=== PATIENT | male | born 1930 | race Caucasian/White ===

== ENCOUNTER 2017-02-22 08:08 | Emergency (ER) | payer SELFPAY ==
[~2017-02-22] VITALS: Wt 55.0 kg
[2017-02-22 10:33] LABS: ADD SCAN DIFF NO
[2017-02-22 10:35] LABS: BASOPHILS % 0.3 % (0.0-2.0); EOSINOPHILS % 0.1 % (0.0-7.0); HEMATOCRIT 34.5 % (42.0-52.0); HEMOGLOBIN 11.5 g/dl (14.0-18.0); LYMPHOCYTES # 0.9 10^3/ul (0.8-2.9); LYMPHOCYTES % 7.9 % (15.0-51.0); MEAN CORPUSCULAR HEMOGLOBIN 32.1 pg (29.0-33.0); MEAN CORPUSCULAR HGB CONC 33.3 g/dl (32.0-37.0); MEAN CORPUSCULAR VOLUME 96.4 fl (82.0-101.0); MEAN PLATELET VOLUME 8.4 fl (7.4-10.4); MONOCYTE # 0.5 10^3/ul (0.3-0.9); MONOCYTES % 4.2 % (0.0-11.0); NEUTROPHIL # 9.8 10^3/ul (1.6-7.5); NEUTROPHILS % 87.1 % (39.0-77.0); PLATELET COUNT 260 10^3/UL (140-415); RED BLOOD COUNT 3.58 10^6/ul (4.70-6.10); RED CELL DISTRIBUTION WIDTH 13.1 % (11.5-14.5); WHITE BLOOD COUNT 11.2 10^3/ul (4.8-10.8)
[2017-02-22 10:58] LABS: ALBUMIN 4.3 g/dl (3.3-4.9); ALBUMIN/GLOBULIN RATIO 4.3; BILIRUBIN,INDIRECT 0.1 mg/dl (0-1.1); BILIRUBIN,TOTAL 0.1 mg/dl (0.2-1.3); CALCIUM 9.4 mg/dl (8.4-10.2); CREATININE 0.88 mg/dl (0.61-1.24); POTASSIUM 4.5 mmol/L (3.5-5.1); TOTAL PROTEIN 5.3 g/dl (6.1-8.1)
[2017-02-22 11:42] LABS: ADD UMIC YES; UR BILIRUBIN (Dip) NEGATIVE (NEGATIVE); UR BLOOD (Dip) 1+ (NEGATIVE); UR CLARITY CLEAR (CLEAR); UR COLOR LT. YELLOW (YELLOW); UR GLUCOSE (Dip) NEGATIVE (NEGATIVE); UR KETONES (Dip) NEGATIVE (NEGATIVE); UR LEUKOCYTE ESTERASE (Dip) 3+ (NEGATIVE); UR NITRITE (Dip) POSITIVE (NEGATIVE); UR TOTAL PROTEIN (Dip) TRACE (NEGATIVE); UR UROBILINOGEN (Dip) 0.2 E.U./dL (0.1-1.0)
[2017-02-22 11:58] LABS: BACTERIA,URINE MODERATE
[2017-02-22] MEDS ORDERED: CIPROFLOXACIN 500 MG TAB PO ONE (12:00)
[2017-02-22] MEDS ORDERED: CEFTRIAXONE 1 GM/50 ML (PMX) 50 ML IVPB ONE (12:00)
[2017-02-22] MEDS ORDERED: CIPR500T4 PO (12:01)
--- NOTE | 2017-02-22 12:06 | ERD ---
ER Documentation Chief Complaint Date/Time DATE: 02/22/17 TIME: 08 Chief Complaint urinary retention for the past few hours. mild abd pain cath in place HPI 86-year-old male presents the emergency department from his care facility for evaluation of urinary retention. Patient has required a Hennessy catheter in the past. He states over the last 24 hours, he has had difficulty passing urine. He reports no fevers, chills, vomiting. Patient reports no hematuria or trauma. ROS All systems reviewed and are negative except as per history of present illness. Medications Home Meds Active Scripts Ciprofloxacin Hcl* (Ciprofloxacin Hcl*) 500 Mg Tablet, 500 MG PO BID for 7 Days , TAB Prov:DEZ DUVALL 02/22/17 Allergies Allergies: Coded Allergies: Unknown: Unable to obtain (Unverified , 02/22/17) FmHx Noncontributory for chief complaint Physical Exam Vitals Vital Signs Date Time Temp Pulse Resp B/P Pulse Ox O2 Delivery O2 Flow Rate FiO2 02/22/17 08:17 98.2 81 21 135/77 97 Physical Exam GENERAL: Patient is a frail elderly male in no acute distress other than his suprapubic discomfort HEENT: Pupils equal, round, and reactive to light. EOMI. There is no scleral icterus. Patient has evidence of squamous cell carcinoma NECK: C-spine is soft and supple, there is no meningismus. There is no cervical lymphadenopathy. LUNGS: Clear to auscultation bilaterally. There are no rales, wheezes or rhonchi. HEART: Regular rate and rhythm, no murmurs, clicks, rubs or gallops. ABDOMEN: Soft, non-tender, non-distended. There are bowel sounds in all four quadrants. No rebound or guarding. Patient has suprapubic distention EXTREMITIES: There is no peripheral cyanosis or edema. No focal swelling or erythema. NEURO: The patient moves all four extremities with 5/5 strength. Cranial nerves II - XII are intact. Normal gait. Alert and oriented SKIN: There is no apparent rash or petechiae. HEME/LYMPHATIC: There is no evidence of excessive bruising or lymphedema. PSYCHIATRIC: The patient does not appear anxious or depressed. Result Diagram: 02/22/17 1020 02/22/17 1020 Results 24 hrs Laboratory Tests Test 02/22/17 10:20 02/22/17 11:30 White Blood Count 11.210^3/ul Red Blood Count 3.5810^6/ul Hemoglobin 11.5g/dl Hematocrit 34.5% Mean Corpuscular Volume 96.4fl Mean Corpuscular Hemoglobin 32.1pg Mean Corpuscular Hemoglobin Concent 33.3g/dl Red Cell Distribution Width 13.1% Platelet Count 27606^3/UL Mean Platelet Volume 8.4fl Neutrophils % 87.1% Lymphocytes % 7.9% Monocytes % 4.2% Eosinophils % 0.1% Basophils % 0.3% Nucleated Red Blood Cells % 0.0/100WBC Neutrophils # 9.810^3/ul Lymphocytes # 0.910^3/ul Monocytes # 0.510^3/ul Eosinophils # 0.010^3/ul Basophils # 0.010^3/ul Nucleated Red Blood Cells # 0.010^3/ul Sodium Level 142mmol/L Potassium Level 4.5mmol/L Chloride Level 106mmol/L Carbon Dioxide Level 29mmol/L Anion Gap 12 Blood Urea Nitrogen 25mg/dl Creatinine 0.88mg/dl Glucose Level 94mg/dl Calcium Level 9.4mg/dl Total Bilirubin 0.1mg/dl Direct Bilirubin 0.00mg/dl Indirect Bilirubin 0.1mg/dl Aspartate Amino Transf (AST/SGOT) 21IU/L Alanine Aminotransferase (ALT/SGPT) 35IU/L Alkaline Phosphatase 88IU/L Total Protein 5.3g/dl Albumin 4.3g/dl Globulin 1.00g/dl Albumin/Globulin Ratio 4.30 Lipase 31U/L Urine Color LT. YELLOW Urine Clarity CLEAR Urine pH 6.5 Urine Specific [place] 1.015 Urine Ketones NEGATIVE Urine Nitrite POSITIVE Urine Bilirubin NEGATIVE Urine Urobilinogen 0.2 E.U./dL Urine Leukocyte Esterase 3+ Urine Microscopic RBC 2-5/HPF Urine Microscopic WBC >200/HPF Urine Bacteria MODERATE Urine Hemoglobin 1+ Urine Glucose NEGATIVE% Urine Total Protein TRACE Current Medications Medications (Trade) Dose Ordered Sig/Fay Route PRN Reason Start Time Stop Time Status Last Admin Dose Admin Ceftriaxone Sodium (Rocephin) 50 ml @ 100 mls/hr ONCE ONCE IVPB 02/22/17 12:00 02/22/17 12:29 Ciprofloxacin (Cipro) 500 mg ONCE ONCE PO 02/22/17 12:00 02/22/17 12:01 Procedures/MDM Patient was taken to a room, seen and evaluated. Comfort measures were initiated. Diagnostic tests were ordered and reviewed. 3 LEAD RHYTHM STRIP: Normal sinus rhythm without ectopy REEVALUATION: After placement of the Hennessy catheter, patient felt much improved. MEDICAL DECISION MAKING: This is an 86-year-old male who presented with urinary retention. Patient does have evidence of urinary tract infection, but does not appear to be septic or toxic. He feels much better after the Hennessy catheter wishes to be discharged home. Departure Diagnosis: Primary Impression: Retention of urine Condition: Stable Patient Instructions: Urinary Retention, Male Additional Instructions: See your doctor for follow-up as discussed. Take a copy of your test results, if appropriate, to this follow-up visit. See your doctor or return here if your symptoms do not improve as expected. At any time, please return to the emergency department for any change or worsening in her symptoms. DEZ DUVALL Feb 22, 2017 12:06
[2017-02-22 13:24] VITALS: BP 129/68; RESP 18
== END 2017-02-22 13:25 | disposition home or self-care (01) ==
LOC: E/R 08:08
DX: R33.9 Retention of urine, unspecified (principal)
CPT/HCPCS: 80053; 81001; 83690; 85025; 87086

== ENCOUNTER 2017-03-19 17:53 | Emergency (ER) | END 2017-03-19 19:00 | disposition home or self-care (01) | DX: T83.098A Other mechanical complication of other urinary catheter, initial encounter (principal); N40.0 Benign prostatic hyperplasia without lower urinary tract symptoms; Y73.2 Prosthetic and other implants, materials and accessory gastroenterology and urology devices associated with adverse incidents ==

== ENCOUNTER 2017-07-05 15:15 | Emergency (ER) | payer OTHER ==
[~2017-07-05] VITALS: Ht 162.6 cm; Wt 55.0 kg
[~2017-07-05 15:15] MED LIST: CIPR500T4 PO
[2017-07-05 15:35] VITALS: Ht 162.6 cm; Wt 55.0 kg
[2017-07-05] MEDS: CEFAZOLIN 1 GM/50 ML (PMX) 50 ML IVPB SCH (16:40)
--- NOTE | 2017-07-05 17:27 | RADRPT ---
PROCEDURE: CT Brain without contrast. CLINICAL INDICATION: Trauma due to a fall. Headache. TECHNIQUE: A CT of the brain without contrast was performed utilizing axial sections from the skul l base through the vertex. The patient was scanned without intravenous contrast enhancement. Sagitta l and coronal reformatted images were obtained using the data from the axial images. Total exam DLP is 720.23 mGy-cm. CTDIvol is 44.33 mGy. One or more of the following dose reduction techniques were used: Automated exposure control, adjustment of the mA and/or kV according to patient size, use of iterative reconstruction technique. COMPARISON: None available. FINDINGS: There is normal roberts-white matter differentiation. There is enlargement of the ventricles and subarachnoid spaces consistent with atrophy. There is decreased attenuation of the periventricular white matter consistent with microangiopathic ischemic change. There is no intracranial hemorrhage or space-occupying lesion. There are vascular calcifications consistent with atherosclerosis. There is no skull fracture or lytic lesion. There is an old superior left frontal craniotomy. IMPRESSION: 1. Atrophy. 2. Microangiopathic ischemic change. 3. Atherosclerosis. 4. No intracranial hemorrhage. 5. Old superior left frontal craniotomy. 6. Otherwise unremarkable noncontrast CT scan of the brain. RPTAT: QQ .Peng Ramirez MD, MD Date Time Electronically viewed and signed by .Peng Ramirez MD, MD on 07/05/2017 17:27 .R/
--- NOTE | 2017-07-05 17:32 | RADRPT ---
PROCEDURE: CT Facial Bones. CLINICAL INDICATION: Trauma due to a fall. Facial pain. TECHNIQUE: Helical axial sections were obtained through the facial bones without intravenous contr ast enhancement. Sagittal and coronal reformatted images were accomplished using the data from the axial images. Total exam DLP is 540.74 mGy-cm. CTDIvol is 29.48 mGy. One or more of the followin g dose reduction techniques were used: Automated exposure control, adjustment of the mA and/or kV ac cording to patient size, use of iterative reconstruction technique. COMPARISON: No prior study is available for comparison. FINDINGS: Paranasal sinuses are normal. There is no fluid, mass, or mucosal thickening. There is no bone abnormality. There is no fracture. There is no lytic or blastic lesion. The orbits are normal. The globes are intact. The extraocular muscles and optic nerves are normal. The nasal septum is midline. The ostiomeatal complexes are normal. The turbinates are unremarkable. The mandible and maxilla are intact. There is asymmetry of the temporal mandibular joints with the r ight temporomandibular joint in the closed position with the mandibular condyle in the articular fos sa and the left temporomandibular joint in the open position with the mandibular condyle translated anterior to the articular fossa. The zygomatic arches and pterygoid plates are normal. There are degenerative changes of the cervical spine. IMPRESSION: 1. No facial bone fracture. 2. Asymmetry of the temporomandibular joints as described above. Clinical correlation advised. 3. Degenerative changes of the cervical spine. 4. Otherwise unremarkable CT scan of the facial bones. RPTAT: QQ .Peng Ramirez MD, Date Time Electronically viewed and signed by .Peng Ramirez MD, on 07/05/2017 17:31 .R/
--- NOTE | 2017-07-05 17:38 | ERD ---
ER Documentation Chief Complaint Chief Complaint FALL AT SNF HIT FACE WITH BLOOD IN MOUTH AND NOSE. NO KO HPI This is an 86-year-old male who presents to the emergency room for evaluation after a ground-level fall at a residential facility. The patient states that he tripped and fell forward. He states that he did not lose consciousness and states that he is feeling okay however his nursing facility made him come to the emergency room for evaluation. He states that he "I think I have a call in my mouth". The patient states that he does have history of basal cell carcinoma on his nose ROS All systems reviewed and are negative except as per history of present illness. Medications Home Meds Active Scripts Ciprofloxacin Hcl* (Ciprofloxacin Hcl*) 500 Mg Tablet, 500 MG PO BID for 7 Days , TAB Prov:DEZ DUVALL 02/22/17 Allergies Allergies: Coded Allergies: Unknown: Unable to obtain (Unverified , 02/22/17) PMhx/Soc Hx Alcohol Use: No Hx Substance Use: No Hx Tobacco Use: No Smoking Status: Never smoker Physical Exam Vitals Vital Signs Date Time Temp Pulse Resp B/P Pulse Ox O2 Delivery O2 Flow Rate FiO2 07/05/17 15:35 98.1 62 19 219/85 99 Physical Exam Const: Frail-appearing elderly male, no acute distress Head: Atraumatic Eyes: Normal Conjunctiva ENT: 0.5 cm laceration on the inner aspect of the lower lip, no tooth avulsions, no jaw dislocation, normal External Ears, Nose and Mouth. Neck: Full range of motion..~ No meningismus. Resp: Clear to auscultation bilaterally Cardio: Regular rate and rhythm, no murmurs Abd: Soft, non tender, non distended. Normal bowel sounds Skin: Facial skin abrasion noted on the dorsal aspect of the right forearm, no petechiae or rashes Back: No midline or flank tenderness Ext: No cyanosis, or edema Neur: Awake and alert Psych: Normal Mood and Affect Results 24 hrs Current Medications Medications (Trade) Dose Ordered Sig/Fay Route PRN Reason Start Time Stop Time Status Last Admin Dose Admin Cefazolin Sodium (Ancef 1 Gm/50 ml (Pmx)) 50 ml @ 100 mls/hr ONCE IVPB 07/05/17 16:30 07/05/17 16:59 DC 07/05/17 16:40 Lidocaine (Xylocaine (Viscous)) 15 ml ONCE ONCE PO 07/05/17 18:00 07/05/17 18:01 07/05/17 17:39 Procedures/MDM CT head without:1. Atrophy. 2. Microangiopathic ischemic change. 3. Atherosclerosis. 4. No intracranial hemorrhage. 5. Old superior left frontal craniotomy. 6. Otherwise unremarkable noncontrast CT scan of the brain. CT face without:1. No facial bone fracture. 2. Asymmetry of the temporomandibular joints as described above. Clinical correlation advised. 3. Degenerative changes of the cervical spine. 4. Otherwise unremarkable CT scan of the facial bones. This 86-year-old male presents to the ER for evaluation of a ground-level fall. The patient did have a small laceration on the inner aspect of the lip which is not causing vermilion border, does not, had x-ray was normal, facial x-rays also normal. He is alert oriented to person place and time. The patient was given 1 g Ancef because he did have some superficial abrasions. His tetanus is up-to-date. The patient had abrasions dressed, and he will be discharged at this time. Patient is okay to plan of care and states "I want to go home". The patient is alert oriented to person place and time Departure Diagnosis: Primary Impression: Facial contusion Additional Impression: Lip laceration Condition: Stable EVAN ACKERMAN DO Jul 05, 2017 17:38
[2017-07-05] MEDS ORDERED: LIDOCAINE 2% VISC 15 ML CUP PO ONE (18:00)
[2017-07-05] MEDS ORDERED: hydrALAzine 20 MG INJ IV ONE (19:00)
[2017-07-05 20:23] VITALS: BP 165/71; PULSE 52; RESP 20; TEMP 98.1
== END 2017-07-05 20:41 | disposition short-term general hospital (02) ==
LOC: E/R 15:15
DX: S01.511A Laceration without foreign body of lip, initial encounter (principal); W01.0XXA Fall on same level from slipping, tripping and stumbling without subsequent striking against object, initial encounter; Y92.89 Other specified places as the place of occurrence of the external cause
CPT/HCPCS: 70450; 70486; 96374; 96375; 99285; J0360; J0690